=== PATIENT | female | born 1970 | race Two or more races ===

== ENCOUNTER 2017-02-13 19:04 | Emergency (ER) | payer MEDICAID ==
[~2017-02-13] VITALS: Ht 152.4 cm; Wt 81.6 kg
[2017-02-14] MEDS ORDERED: PROMETHAZINE W/CODEINE 5 ML ORAL SYRUP PO ONE (03:15)
[2017-02-14 03:19] LABS: Hematocrit 42.6 % (36.0-46.0); Hemoglobin 13.9 g/dL (12.2-16.2); Mean Corpuscular Hemoglobin 28.4 pg (28.0-32.0); Mean Corpuscular Hgb Conc. 32.7 g/dL (32.0-36.0); Mean Corpuscular Volume 86.9 fL (80.0-100.0); Mean Platelet Volume 10.3 fL (7.4-10.4); Platelet Count (auto) 265 10^3/uL (140-450); Red Cell Distribution Width 13.9 % (11.6-16.0); White Blood Cell 6.9 10^3/uL (4.4-10.8)
[2017-02-14 03:27] LABS: BUN/Creatinine Ratio 19.7; Calcium 8.9 mg/dL (8.5-10.1); Potassium 3.5 mmol/L (3.5-5.1)
[2017-02-14 03:30] LABS: Bilirubin, Total 0.5 mg/dL (0.2-1.0); Total Protein 8.2 g/dL (6.4-8.2)
[2017-02-14 03:59] LABS: Metamyelocytes % 0; Myelocytes % 0; Promyelocytes % 0; Reactive Lymphocytes 0
[2017-02-14] MEDS ORDERED: LEVOFLOXACIN 750MG 150 ML IV ONE (04:15)
[2017-02-14 04:46] LABS: Platelet Estimate Adequate
[2017-02-14 04:47] LABS: Ovalocytes FEW; Tear Drop Cells FEW
[2017-02-14 05:44] VITALS: BP 124/71
== END 2017-02-14 04:22 | disposition home or self-care (01) ==
LOC: ER 19:09
DX: J20.9 Acute bronchitis, unspecified (principal); K29.00 Acute gastritis without bleeding; E07.9 Disorder of thyroid, unspecified
CPT/HCPCS: 36415; 71010; 74176; 80053; 83690; 85007; 85027; 93005; 96365; 99285; J1956; J7030